=== PATIENT | male | born 1945 | race African-American/Black ===

== ENCOUNTER 2016-05-09 12:07 | Observation (INO) | payer OTHER ==
[~2016-05-09] VITALS: Ht 154.9 cm; Wt 72.2 kg
[2016-05-09 14:11] LABS: PLATELET COUNT 122 K/uL (142-355)
[2016-05-09 15:24] VITALS: BP 182/94; TEMP 99.9; Ht 154.9 cm; Wt 72.2 kg
[2016-05-09 15:40] LABS: POTASSIUM 4.1 mmol/L (3.6-5.2); SODIUM 136 mmol/L (136-145)
[2016-05-09 16:00] VITALS: BP 192/87; TEMP 100.7
[2016-05-09] MEDS ORDERED: ENALAPRIL10 MG PO (18:24)
[2016-05-09 20:00] VITALS: BP 176/60; TEMP 99
[2016-05-10] VITALS: BP 167/68; TEMP 99.2
[2016-05-10 04:00] VITALS: BP 184/70; TEMP 99.1
[2016-05-10 04:46] LABS: PLATELET COUNT 113 K/uL (142-355)
[2016-05-10 05:00] LABS: SODIUM 137 mmol/L (136-145)
[2016-05-10 08:00] VITALS: BP 180/59; TEMP 99
[2016-05-10 12:00] VITALS: BP 147/78; TEMP 98.5
== END 2016-05-10 16:50 | disposition home or self-care (01) ==
LOC: MED/SURG 12:07
PROVIDERS: Emergency Medicine; ADMIT Nurse Practitioner Family
DX: R50.9 Fever, unspecified (principal); R06.09 Other forms of dyspnea; R06.02 Shortness of breath; R11.2 Nausea with vomiting, unspecified; E11.9 Type 2 diabetes mellitus without complications; I10 Essential (primary) hypertension
CPT/HCPCS: 36415; 80048; 80053; 83036; 83735; 85027; 87040; 96365; 96366; 96367; 99220; G0378; G0379

== ENCOUNTER 2017-10-12 10:52 | Inpatient (IN) | payer OTHER ==
[~2017-10-12] VITALS: Ht 167.6 cm; Wt 70.6 kg
[~2017-10-12 10:52] MED LIST: ENALAPRIL10 MG PO
[2017-10-12 11:00] VITALS: BP 207/76; TEMP 97.7
[2017-10-12 11:28] VITALS: BP 169/72
[2017-10-12 11:34] LABS: PLATELET COUNT 174 K/uL (142-355)
[2017-10-12 11:38] LABS: POTASSIUM 4.6 mmol/L (3.6-5.2)
[2017-10-12 12:01] LABS: PARTIAL THROMBOPLASTIN TIME 23.2 SECONDS (24.5-33.6)
[2017-10-12 15:13] VITALS: BP 175/72; TEMP 98.5; Ht 167.6 cm; Wt 70.6 kg
[2017-10-12 16:00] VITALS: BP 175/72; TEMP 98.5
[2017-10-12 19:58] VITALS: BP 160/56; TEMP 99.1
[2017-10-13] VITALS: BP 175/71; TEMP 98.8
[2017-10-13 04:00] VITALS: BP 151/63; TEMP 98.6
[2017-10-13 06:21] LABS: PLATELET COUNT 160 K/uL (142-355)
[2017-10-13 06:46] LABS: POTASSIUM 4.1 mmol/L (3.6-5.2)
[2017-10-13 08:00] VITALS: BP 130/60; BP 180/70; TEMP 98.8
[2017-10-13 11:40] VITALS: BP 128/56; TEMP 99.2
[2017-10-13 16:00] VITALS: BP 180/102; TEMP 98.3
[2017-10-13 20:00] VITALS: BP 170/60; TEMP 99.2
[2017-10-14] VITALS: BP 198/80; TEMP 99.5
[2017-10-14 04:00] VITALS: BP 145/61; TEMP 98.7
[2017-10-14 06:03] LABS: PLATELET COUNT 150 K/uL (142-355)
[2017-10-14 06:42] LABS: POTASSIUM 3.9 mmol/L (3.6-5.2)
[2017-10-14 08:00] VITALS: BP 153/68; TEMP 98.4
[2017-10-14 12:00] VITALS: BP 170/60; TEMP 98.8
[2017-10-14 16:00] VITALS: BP 210/98; TEMP 98.1
[2017-10-14 20:00] VITALS: BP 173/65; TEMP 98.9
[2017-10-15] VITALS: BP 182/67; TEMP 98.6
[2017-10-15 04:00] VITALS: BP 173/92; TEMP 98.5
[2017-10-15 05:34] LABS: PLATELET COUNT 153 K/uL (142-355)
[2017-10-15 05:49] LABS: POTASSIUM 4.4 mmol/L (3.6-5.2)
[2017-10-15 08:00] VITALS: BP 150/55
[2017-10-15 12:06] VITALS: BP 127/73; TEMP 98.3
[2017-10-15] MEDS ORDERED: CLOP75TA2 PO (15:37)
[2017-10-15] MEDS ORDERED: LISI20TA11 PO (15:37)
[2017-10-15] MEDS ORDERED: AMLODIPINE BESYLATE PO (15:37)
[2017-10-15] MEDS ORDERED: ATOR20TA2 PO (15:37)
[2017-10-15] MEDS ORDERED: HYDR25TA60 PO (15:37)
[2017-10-15] MEDS ORDERED: METF500T PO (15:37)
== END 2017-10-15 16:30 | disposition home or self-care (01) | DRG 66 ==
LOC: ED 10:52 → MED/SURG 14:05
PROVIDERS: ADMIT Family Medicine
DX: I63.541 Cerebral infarction due to unspecified occlusion or stenosis of right cerebellar artery (principal); I10 Essential (primary) hypertension; Z91.14 Patient's other noncompliance with medication regimen; E78.4 Other hyperlipidemia; E11.9 Type 2 diabetes mellitus without complications; R51 Headache
CPT/HCPCS: 36415; 80053; 80061; 81000; 82948; 83036; 84484; 85027; 85610; 85730; 93005; 96372; 99283; J0360; J1815

== ENCOUNTER 2019-09-26 15:35 | Outpatient (CLI) | payer OTHER ==
[~2019-09-26 15:35] MED LIST changes: +AMLODIPINE BESYLATE PO; +ATOR20TA2 PO; +CLOP75TA2 PO; +HYDR25TA60 PO; +LISI20TA11 PO; +METF500T PO
== END 2019-09-26 19:34 | disposition home or self-care (01) ==
LOC: RAD 15:35
DX: R80.8 Other proteinuria (principal); M25.511 Pain in right shoulder

== ENCOUNTER 2019-09-30 11:41 | Outpatient (CLI) | payer OTHER | END 2019-09-30 20:56 | disposition home or self-care (01) | LOC: LAB 11:41 | DX: R80.8 Other proteinuria (principal) | CPT/HCPCS: 84156 ==

== ENCOUNTER 2020-12-09 16:34 | Inpatient (IN) | payer OTHER ==
[~2020-12-09] VITALS: Ht 144.8 cm; Wt 65.4 kg
[2020-12-09 16:34] VITALS: BP 175/73; TEMP 98.6
[2020-12-09 16:53] LABS: PLATELET COUNT 177 K/uL (142-355)
[2020-12-09 17:00] VITALS: BP 160/66
[2020-12-09 17:03] LABS: POTASSIUM 3.8 mmol/L (3.6-5.2)
[2020-12-09 17:50] VITALS: BP 171/60
[2020-12-10] VITALS (7 sets, daily range): BP systolic 123–198; BP diastolic 46–80; TEMP 97.6–98.7; Ht 144.8 cm; Wt 65.4 kg
[2020-12-10] MEDS ORDERED: ENALAPRIL10 MG PO (05:15)
[2020-12-10 08:55] LABS: PLATELET COUNT 160 K/uL (142-355)
[2020-12-11 04:11] VITALS: BP 160/57; TEMP 98.4
[2020-12-11 05:52] LABS: PLATELET COUNT 166 K/uL (142-355)
[2020-12-11 06:02] LABS: POTASSIUM 4.2 mmol/L (3.6-5.2)
[2020-12-11 08:00] VITALS: BP 155/66; TEMP 98
[2020-12-11] MEDS ORDERED: ACET-206 PO (11:45)
[2020-12-11] MEDS ORDERED: ENTERIC COATED325 MG PO (11:45)
== END 2020-12-11 13:15 | disposition home or self-care (01) | DRG 69 ==
LOC: ED 16:34 → MED/SURG 18:30
PROVIDERS: Hospitalist; ADMIT Internal Medicine Endocrinology, Diabetes & Metabolism; ATTEND Internal Medicine Endocrinology, Diabetes & Metabolism
DX: G45.8 Other transient cerebral ischemic attacks and related syndromes (principal); I21.4 Non-ST elevation (NSTEMI) myocardial infarction; E78.49 Other hyperlipidemia; E11.9 Type 2 diabetes mellitus without complications; K21.9 Gastro-esophageal reflux disease without esophagitis; I25.10 Atherosclerotic heart disease of native coronary artery without angina pectoris; I10 Essential (primary) hypertension; F03.90 Unspecified dementia, unspecified severity, without behavioral disturbance, psychotic disturbance, mood disturbance, and anxiety
CPT/HCPCS: 36415; 80048; 80053; 80320; 81000; 82550; 83880; 84484; 85027; 85610; 85730; 87635; 93005; 96374; 99284; A9576; J0360; J1650; J1815; U0003

== ENCOUNTER 2021-01-28 09:12 | Outpatient (CLI) | payer OTHER ==
[~2021-01-28 09:12] MED LIST changes: +ACET-206 PO; +ENTERIC COATED325 MG PO
== END 2021-01-28 18:57 | disposition home or self-care (01) ==
LOC: LABW 09:12
PROVIDERS: ATTEND Specialist
DX: I63.9 Cerebral infarction, unspecified (principal)
CPT/HCPCS: 36415; 81240; 81241; 83090; 85240; 85300; 85301; 85303; 85306; 85652; 86038; 86147